=== PATIENT | female | born 1955 | race Caucasian/White ===

== ENCOUNTER 2018-07-12 13:44 | Observation (INO) | payer OTHER ==
[2018-07-12] MEDS ORDERED: NITROGLYCERIN SL TABS 0.4 MG TAB SUBLINGUAL STA (14:12)
[2018-07-12] MEDS ORDERED: ASPIRIN 81 MG PO STA (14:12)
[2018-07-12] MEDS: NITROGLYCERIN OINT 1 INCH/GM PACKET TOPICAL STA ×2 (14:23→15:12)
--- NOTE | 2018-07-12 14:30 | ED ---
General Adult HPI - General Chief complaint: Chest Pain Stated complaint: Chest Pressure Time Seen by Provider: 07/12/18 13:50 Source: patient, RN notes reviewed Mode of arrival: wheelchair Limitations: no limitations - History of Present Illness Initial comments: This a 62-year-old female presents emergency Department complaining of chest pain or the last 3 hours. Patient states it's a constant discomfort of the chest with episodes of chest heaviness are more severe. Patient states she's also very short of breath with this. Patient tried to wait it out because she was hoping it wasn't cardiac related but since it didn't go away she felt to come to the hospital. Patient denies any diaphoretic episodes associated with this. Patient states however when the pain gets worse she is definitely nauseated. Patient denies any vomiting per patient denies any abdominal pain patient denies any diarrhea. Patient denies any recent fever chills or cough. Patient denies any swelling to the legs or calf tenderness. Patient denies any recent ill. Patient states she has a history of hyper cholesterolemia as well as cardiogenic syncope. Patient denies any near syncope or dizziness today - Related Data Home Medications Medication Instructions Recorded Confirmed Aspirin EC [Ecotrin Low Dose] 81 mg PO DAILY 07/12/18 07/12/18 Atorvastatin [Lipitor] 10 mg PO HS 07/12/18 07/12/18 Cholecalciferol (Vitamin D3) 2,000 unit PO DAILY 07/12/18 07/12/18 [Vitamin D3] Ibuprofen [Motrin Ib] 800 mg PO Q8H PRN 07/12/18 07/12/18 Venlafaxine HCl [Effexor XR] 18.75 mg PO HS 07/12/18 07/12/18 Allergies Allergy/AdvReac Type Severity Reaction Status Date / Time No Known Allergies Allergy Verified 07/12/18 15:42 Review of Systems ROS Statement: Those systems with pertinent positive or pertinent negative responses have been documented in the HPI. ROS Other: All systems not noted in ROS Statement are negative. Past Medical History Past Medical History: Hyperlipidemia Additional Past Medical History / Comment(s): syncopal History of Any Multi-Drug Resistant Organisms: None Reported Past Surgical History: No Surgical Hx Reported Past Psychological History: PTSD Smoking Status: Former smoker Past Alcohol Use History: Occasional Past Drug Use History: None Reported General Exam - General Exam Comments Initial Comments: GENERAL: Patient is well-developed and well-nourished. Patient is nontoxic and well- hydrated and is in mild distress. ENT: Neck is soft and supple. No significant lymphadenopathy is noted. Oropharynx is clear. Moist mucous membranes. Neck has full range of motion without eliciting any pain. EYES: The sclera were anicteric and conjunctiva were pink and moist. Extraocular movements were intact and pupils were equal round and reactive to light. Eyelids were unremarkable. PULMONARY: Unlabored respirations. Good breath sounds bilaterally. No audible rales rhonchi or wheezing was noted. CARDIOVASCULAR: There is a regular rate and rhythm without any murmurs gallops or rubs. ABDOMEN: Soft and nontender with normal bowel sounds. No palpable organomegaly was noted. There is no palpable pulsatile mass. SKIN: Skin is clear with no lesions or rashes and otherwise unremarkable. NEUROLOGIC: Patient is alert and oriented x3. Cranial nerves II through XII are grossly intact. Motor and sensory are also intact. Normal speech, volume and content. Symmetrical smile. MUSCULOSKELETAL: Normal extremities with adequate strength and full range of motion. No lower extremity swelling or edema. No calf tenderness. LYMPHATICS: No significant lymphadenopathy is noted PSYCHIATRIC: Normal psychiatric evaluation. 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 EKG shows a normal sinus rhythm at 62 bpm [place] interval 292 QRS is 82 QT intervals 42 QTC is 408. Patient's EKG shows no ST segment elevation or depression or T wave abnormalities are noted. I started the patient on heparin because of the intermittent nature of the chest pain that was making her short of breath and nausea. I consider this unstable angina. I admitted the patient I spoke with because she agreed to accept the admission I wrote admitting orders I consulted cardiology continue the heparin nitro patient aspirin on the floor. - Lab Data Result diagrams: 07/12/18 14:20 07/12/18 14:20 Lab Results 07/12/18 07/12/18 07/12/18 Range/Units 14:20 14:20 14:20 WBC 6.0 (3.8-10.6) k/uL RBC 4.76 (3.80-5.40) m/uL Hgb 14.4 (11.4-16.0) gm/dL Hct 44.5 (34.0-46.0) % MCV 93.6 (80.0-100.0) fL MCH 30.2 (25.0-35.0) pg MCHC 32.3 (31.0-37.0) g/dL RDW 12.4 (11.5-15.5) % Plt Count 262 (150-450) k/uL Neutrophils % 53 % Lymphocytes % 37 % Monocytes % 6 % Eosinophils % 3 % Basophils % 0 % Neutrophils # 3.1 (1.3-7.7) k/uL Lymphocytes # 2.2 (1.0-4.8) k/uL Monocytes # 0.3 (0-1.0) k/uL Eosinophils # 0.2 (0-0.7) k/uL Basophils # 0.0 (0-0.2) k/uL PT (9.0-12.0) sec INR (<1.2) APTT (22.0-30.0) sec Sodium 142 (137-145) mmol/L Potassium 4.4 (3.5-5.1) mmol/L Chloride 108 H (98-107) mmol/L Carbon Dioxide 26 (22-30) mmol/L Anion Gap 8 mmol/L BUN 17 (7-17) mg/dL Creatinine 0.76 (0.52-1.04) mg/dL Est GFR (CKD-EPI)AfAm >90 (>60 ml/min/1.73 sqM) Est GFR (CKD-EPI)NonAf 85 (>60 ml/min/1.73 sqM) Glucose 88 (74-99) mg/dL Calcium 9.8 (8.4-10.2) mg/dL Magnesium 2.0 (1.6-2.3) mg/dL Total Bilirubin 0.5 (0.2-1.3) mg/dL AST 32 (14-36) U/L ALT 52 (9-52) U/L Alkaline Phosphatase 77 (38-126) U/L Total Creatine Kinase 72 (30-135) U/L CK-MB (CK-2) 1.1 (0.0-2.4) ng/mL CK-MB (CK-2) Rel Index 1.5 Troponin I <0.012 (0.000-0.034) ng/mL NT-Pro-B Natriuret Pep pg/mL Total Protein 6.7 (6.3-8.2) g/dL Albumin 3.8 (3.5-5.0) g/dL 07/12/18 07/12/18 Range/Units 14:20 14:20 WBC (3.8-10.6) k/uL RBC (3.80-5.40) m/uL Hgb (11.4-16.0) gm/dL Hct (34.0-46.0) % MCV (80.0-100.0) fL MCH (25.0-35.0) pg MCHC (31.0-37.0) g/dL RDW (11.5-15.5) % Plt Count (150-450) k/uL Neutrophils % % Lymphocytes % % Monocytes % % Eosinophils % % Basophils % % Neutrophils # (1.3-7.7) k/uL Lymphocytes # (1.0-4.8) k/uL Monocytes # (0-1.0) k/uL Eosinophils # (0-0.7) k/uL Basophils # (0-0.2) k/uL PT 10.0 (9.0-12.0) sec INR 1.0 (<1.2) APTT 21.9 L (22.0-30.0) sec Sodium (137-145) mmol/L Potassium (3.5-5.1) mmol/L Chloride (98-107) mmol/L Carbon Dioxide (22-30) mmol/L Anion Gap mmol/L BUN (7-17) mg/dL Creatinine (0.52-1.04) mg/dL Est GFR (CKD-EPI)AfAm (>60 ml/min/1.73 sqM) Est GFR (CKD-EPI)NonAf (>60 ml/min/1.73 sqM) Glucose (74-99) mg/dL Calcium (8.4-10.2) mg/dL Magnesium (1.6-2.3) mg/dL Total Bilirubin (0.2-1.3) mg/dL AST (14-36) U/L ALT (9-52) U/L Alkaline Phosphatase (38-126) U/L Total Creatine Kinase (30-135) U/L CK-MB (CK-2) (0.0-2.4) ng/mL CK-MB (CK-2) Rel Index Troponin I (0.000-0.034) ng/mL NT-Pro-B Natriuret Pep 35 pg/mL Total Protein (6.3-8.2) g/dL Albumin (3.5-5.0) g/dL Critical Care Time Critical Care Time: Yes Total Critical Care Time: 35 Disposition Clinical Impression: Unstable angina pectoris Disposition: ADMITTED IP TO THIS HOSP Referrals: Dorothy Hurtado MD [Primary Care Provider] - 1-2 days Time of Disposition: 16:16
[2018-07-12 14:47] LABS: Basophils % (A) 0 %; Eosinophils # (A) 0.2 k/uL (0-0.7); Eosinophils % (A) 3 %; HCT 44.5 % (34.0-46.0); HGB 14.4 gm/dL (11.4-16.0); Lymphocytes # (A) 2.2 k/uL (1.0-4.8); Lymphocytes % (A) 37 %; MCH 30.2 pg (25.0-35.0); MCHC 32.3 g/dL (31.0-37.0); MCV 93.6 fL (80.0-100.0); Mean Platelet Volume 6.7; Monocytes # (A) 0.3 k/uL (0-1.0); Monocytes % (A) 6 %; Neutrophils # (A) 3.1 k/uL (1.3-7.7); Neutrophils % (A) 53 %; Platelet Count 262 k/uL (150-450); RBC 4.76 m/uL (3.80-5.40); RDW 12.4 % (11.5-15.5)
[2018-07-12 14:56] LABS: ALT 52 U/L (9-52); AST 32 U/L (14-36); Albumin 3.8 g/dL (3.5-5.0); Alkaline Phosphatase 77 U/L (38-126); Anion Gap 8 mmol/L; Blood Urea Nitrogen 17 mg/dL (7-17); Calcium 9.8 mg/dL (8.4-10.2); Carbon Dioxide 26 mmol/L (22-30); Chloride 108 mmol/L (98-107); Glucose 88 mg/dL (74-99); Potassium 4.4 mmol/L (3.5-5.1); Sodium 142 mmol/L (137-145); Total Bilirubin 0.5 mg/dL (0.2-1.3); Total Protein 6.7 g/dL (6.3-8.2)
[2018-07-12 15:01] LABS: Creatine Kinase 72 U/L (30-135)
--- NOTE | 2018-07-12 15:13 | XR ---
EXAMINATION TYPE: XR chest 2V DATE OF EXAM: 07/12/2018 COMPARISON: NONE HISTORY: Chest heaviness. Short of breath TECHNIQUE: Frontal and lateral views of the chest are obtained. FINDINGS: There is poor expiration. Lungs are clear. There is no heart failure. Bony thorax is intac t. There are chest leads. There is no evidence of pleural effusion. IMPRESSION: Inspiration is poor. No heart failure or pulmonary consolidation.
[2018-07-12 15:14] LABS: Creatine Kinase MB 1.1 ng/mL (0.0-2.4); Troponin I <0.012 ng/mL (0.000-0.034)
[2018-07-12 15:31] LABS: Partial Thromboplastin Time 21.9 sec (22.0-30.0)
[2018-07-12] MEDS ORDERED: HEPARIN SODIUM,PORCINE 5,000 UNIT/ML 1 ML VIAL IV ONE (16:12)
[2018-07-12] MEDS ORDERED: HEPARIN SOD,PORK IN 0.45% NACL 25,000 UNIT in 0.45% NACL 1 500ML.BAG IV SCH (16:15)
[2018-07-12] MEDS ORDERED: NITROGLYCERIN SL TABS 0.4 MG TAB SUBLINGUAL PRN (17:44)
[2018-07-12] MEDS ORDERED: ACETAMINOPHEN TAB 325 MG TAB PO PRN (19:29)
[2018-07-12] MEDS ORDERED: VENLAFAXINE HCL 37.5 MG TAB PO SCH (21:00)
[2018-07-12] MEDS ORDERED: ATORVASTATIN 10 MG TAB PO SCH (21:00)
[2018-07-12 21:24] VITALS: BMI 29.5
[2018-07-12 22:17] LABS: Creatine Kinase 52 U/L (30-135)
[2018-07-12 22:31] LABS: Creatine Kinase MB 0.8 ng/mL (0.0-2.4); Troponin I <0.012 ng/mL (0.000-0.034)
[2018-07-13 03:05] LABS: Cholesterol 145 mg/dL (<200); HDL Cholesterol 56 mg/dL (40-60); LDL Cholesterol,Calculated 65 mg/dL (0-99); Triglycerides 122 mg/dL (<150)
[2018-07-13 03:28] LABS: Creatine Kinase 46 U/L (30-135)
[2018-07-13 03:41] LABS: Creatine Kinase MB 0.7 ng/mL (0.0-2.4); Troponin I <0.012 ng/mL (0.000-0.034)
[2018-07-13] MEDS ORDERED: ASPIRIN 325 MG TAB PO SCH (09:00)
[2018-07-13] MEDS ORDERED: ASPIRIN 81 MG PO SCH (09:00)
--- NOTE | 2018-07-13 10:34 | P.CRDCN ---
History of Present Illness History of present illness: This is a pleasant 62-year-old female past medical history significant for dyslipidemia. She denies history of hypertension, coronary artery disease or diabetes mellitus. She follows with Dr. Rod in the office. We have been asked to see her in consultation for chest pain. She states she woke up yesterday morning had a couple coffee was going about her normal routine she just didn't feel well in general she felt mildly nauseated and felt and nonspecific tightness around her upper chest and torso. She decided to go lay down and see if this would resolve her symptoms however the tightness in her chest persisted and then she started feeling short of breath. The pain radiated up into both of her shoulders at the base of her neck. No radiation to the arm or back. She states the day prior she also felt an odd pain sensation in the right neck with no specific aggravating factor or trauma. Continues to feel mildly nauseated. Chest pain has resolved. EKG reveals sinus mechanism with no acute ST or T-wave abnormalities. Chest x-ray is negative for an acute cardiopulmonary process. Laboratory data reviewed, WBC 6, hemoglobin 14.4, platelets 262, d-dimer 0.3, sodium 140, potassium 4.4, creatinine 0.76, magnesium 2.0, cardiac enzymes negative 3, LDL 65 and HDL 56. Current cardiac medications include aspirin 81 mg daily and atorvastatin 10 mg daily. At the time of my exam: CONSTITUTIONAL: Denies fever. Denies chills. EYES: Denies blurred vision. Denies vision changes. Denies eye pain. EARS, NOSE, MOUTH & THROAT: Denies headache. Denies sore throat. Denies ear pain. CARDIOVASCULAR: Denies chest pain. Denies shortness of breath. Denies orthopnea. Denies PND. Denies palpitations. RESPIRATORY: Denies cough. GASTROINTESTINAL: Denies abdominal pain. Denies diarrhea. Denies constipation. Denies nausea. Denies vomiting. MUSCULOSKELETAL: Denies myalgias. INTEGUMENTARY: Denies pruitis. Denies rash. NEUROLOGIC: Denies numbness. Denies tingling. Denies weakness. PSYCHIATRIC: Denies anxiety. Denies depression. ENDOCRINE: Denies fatigue. Denies weight change. Denies polydipsia. Denies polyurina. GENITOURINARY: Denies burning, hematuria or urgency with micturation. HEMATOLOGIC: Denies history of anemia. Denies bleeding. Blood pressure 115/70 heart rate 72 afebrile maintaining oxygen saturation on room air GENERAL: This is a 62-year-old female in no apparent distress at the time of my examination. HEENT: Head is atraumatic, normocephalic. Pupils are equal, round. Sclerae anicteric. Conjunctivae are clear. Mucous membranes of the mouth are moist. Neck is supple. There is no jugular venous distention. No carotid bruit is heard. LUNGS: Clear to auscultation no wheezes, rales or rhonchi. No chest wall tenderness is noted on palpation or with deep breathing. HEART: Regular rate and rhythm without murmurs, rubs or gallops. S1 and S2 heard. ABDOMEN: Soft, nontender. Bowel sounds are heard. No organomegaly noted. EXTREMITIES: No evidence of peripheral edema and no calf tenderness noted. VASCULAR: Radial and dorsalis pedis pulses palpated, no evidence of clubbing. NEUROLOGIC: Patient is awake, alert and oriented x3. ASSESSMENT Chest pain, atypical. An acute coronary event has been ruled out with no EKG evidence of ischemia and negative cardiac enzymes. Dyslipidemia PLAN An acute coronary event has been ruled out with no EKG evidence of ischemia and negative cardiac enzymes. Obtain 2-D echocardiogram and Doppler study to assess cardiac structure and function. Perform stress echocardiogram to assess for stress-induced cardiac ischemia. If stress test is normal she is stable from a cardiac perspective. Follow up with Dr. Rod in 3-4 weeks. Thank you kindly for this consultation. Nurse Practitioner note has been reviewed, I agree with a documented findings and plan of care. Patient was seen and examined. Past Medical History Past Medical History: Hyperlipidemia Additional Past Medical History / Comment(s): syncopal History of Any Multi-Drug Resistant Organisms: None Reported Past Surgical History: No Surgical Hx Reported Smoking Status: Never smoker - Past Family History Father Additional Family Medical History / Comment(s): Pacer Mother Family Medical History: No Reported History Medications and Allergies Home Medications Medication Instructions Recorded Confirmed Type Aspirin EC [Ecotrin Low Dose] 81 mg PO DAILY 07/12/18 07/12/18 History Atorvastatin [Lipitor] 10 mg PO HS 07/12/18 07/12/18 History Cholecalciferol (Vitamin D3) 2,000 unit PO DAILY 07/12/18 07/12/18 History [Vitamin D3] Ibuprofen [Motrin Ib] 800 mg PO Q8H PRN 07/12/18 07/12/18 History Venlafaxine HCl [Effexor XR] 18.75 mg PO HS 07/12/18 07/12/18 History Allergies Allergy/AdvReac Type Severity Reaction Status Date / Time No Known Allergies Allergy Verified 07/12/18 21:14 Physical Exam Vitals: Vital Signs Temp Pulse Pulse Pulse Resp BP BP 07/13/18 07:30 98.4 F 72 17 115/70 07/13/18 03:47 98.3 F 77 18 114/65 07/13/18 03:12 18 07/13/18 00:00 97.5 F L 68 18 114/64 07/12/18 21:53 18 07/12/18 20:00 98.1 F 75 62 18 108/64 109/51 07/12/18 19:00 60 18 107/68 07/12/18 18:00 54 L 14 111/71 07/12/18 17:00 57 L 18 114/82 07/12/18 16:00 56 L 19 126/86 07/12/18 15:15 55 L 18 115/73 07/12/18 15:00 55 L 11 L 115/80 07/12/18 14:38 77 18 115/80 07/12/18 14:25 62 07/12/18 13:49 97.8 F 66 20 162/75 Pulse Ox 07/13/18 07:30 98 07/13/18 03:47 97 07/13/18 03:12 07/13/18 00:00 97 07/12/18 21:53 07/12/18 20:00 95 07/12/18 19:00 95 07/12/18 18:00 84 L 07/12/18 17:00 98 07/12/18 16:00 96 07/12/18 15:15 97 07/12/18 15:00 95 07/12/18 14:38 95 07/12/18 14:25 07/12/18 13:49 97 Intake and Output 07/12/18 07/13/18 07/13/18 22:59 06:59 14:59 Intake Total 137.988 Balance 137.988 Intake: Intake, IV Titration 137.988 Amount Heparin Sod,Pork in 0.45% 137.988 NaCl 25,000 unit In 0.45 % NaCl 1 500ml.bag @ 11 UNITS/KG/HR 19.95 mls/hr IV .Q24H [facility] Rx#: [id number] Other: # Voids 1 Weight 90.7 kg Results 07/12/18 14:20 07/12/18 14:20 Cardiac Enzymes 07/12/18 07/12/18 07/12/18 Range/Units 14:20 14:20 21:21 AST 32 (14-36) U/L CK-MB (CK-2) 1.1 0.8 (0.0-2.4) ng/mL Troponin I <0.012 <0.012 (0.000-0.034) ng/mL 07/13/18 Range/Units 02:26 AST (14-36) U/L CK-MB (CK-2) 0.7 (0.0-2.4) ng/mL Troponin I <0.012 (0.000-0.034) ng/mL Coagulation 07/12/18 07/12/18 Range/Units 14:20 23:20 PT 10.0 (9.0-12.0) sec APTT 21.9 L 42.6 H (22.0-30.0) sec Lipids 07/13/18 Range/Units 02:26 Triglycerides 122 (<150) mg/dL Cholesterol 145 (<200) mg/dL HDL Cholesterol 56 (40-60) mg/dL CBC 07/12/18 Range/Units 14:20 WBC 6.0 (3.8-10.6) k/uL RBC 4.76 (3.80-5.40) m/uL Hgb 14.4 (11.4-16.0) gm/dL Hct 44.5 (34.0-46.0) % Plt Count 262 (150-450) k/uL Comprehensive Metabolic Panel 07/12/18 Range/Units 14:20 Sodium 142 (137-145) mmol/L Potassium 4.4 (3.5-5.1) mmol/L Chloride 108 H (98-107) mmol/L Carbon Dioxide 26 (22-30) mmol/L BUN 17 (7-17) mg/dL Creatinine 0.76 (0.52-1.04) mg/dL Glucose 88 (74-99) mg/dL Calcium 9.8 (8.4-10.2) mg/dL AST 32 (14-36) U/L ALT 52 (9-52) U/L Alkaline Phosphatase 77 (38-126) U/L Total Protein 6.7 (6.3-8.2) g/dL Albumin 3.8 (3.5-5.0) g/dL Current Medications Generic Name Dose Route Start Last Admin Trade Name Freq PRN Reason Stop Dose Admin Acetaminophen 650 mg 07/12/18 19:29 Tylenol Tab PO Q4HR PRN Fever and/ or Pain Aspirin 325 mg 07/13/18 09:00 Aspirin PO DAILY [facility] Atorvastatin Calcium 10 mg 07/12/18 21:00 07/12/18 21:31 Lipitor PO 10 mg HS [facility] Administration Heparin Sodium/Sodium Chloride 500 mls @ 19.95 mls/hr 07/12/18 16:15 00:28 25,000 unit/ Sodium Chloride IV 13 units/kg/hr .Q24H [facility] 23.58 mls/hr Titration Protocol 11 UNITS/KG/HR Nitroglycerin 0.4 mg 07/12/18 17:44 Nitrostat SUBLINGUAL Q5M PRN Chest Pain Venlafaxine HCl 18.75 mg 07/12/18 21:00 07/12/18 21:30 Effexor PO 18.75 mg HS [facility] Administration Intake and Output 07/12/18 07/13/18 07/13/18 22:59 06:59 14:59 Intake Total 137.988 Balance 137.988 Intake: Intake, IV Titration 137.988 Amount Heparin Sod,Pork in 0.45% 137.988 NaCl 25,000 unit In 0.45 % NaCl 1 500ml.bag @ 11 UNITS/KG/HR 19.95 mls/hr IV .Q24H [facility] Rx#: [id number] Other: # Voids 1 Weight 90.7 kg 07/12/18 14:20 07/12/18 14:20
--- NOTE | 2018-07-13 11:40 | ECHOF ---
Referral Reason:cp, sob MEASUREMENTS -------- HEIGHT: 175.3 cm WEIGHT: 90.3 kg BP: 115/70 RVIDd: 2.8 cm (< 3.3) IVSd: 1.2 cm (0.6 - 1.1) LVIDd: 3.5 cm (3.9 - 5.3) LVPWd: 1.1 cm (0.6 - 1.1) IVSs: 1.6 cm LVIDs: 3.3 cm LVPWs: 0.9 cm LA Diam: 2.9 cm (2.7 - 3.8) LAESV Index (A-L): 17.70 ml/m Ao Diam: 3.2 cm (2.0 - 3.7) AV Cusp: 1.6 cm (1.5 - 2.6) LA Diam: 3.1 cm (2.7 - 3.8) MV EXCURSION: 17.007 mm (> 18.000) MV EF SLOPE: 78 mm/s (70 - 150) EPSS: 0.8 cm MV E Beni: 0.60 m/s MV DecT: 294 ms MV A Beni: 0.73 m/s MV E/A Ratio: 0.83 RAP: 5.00 mmHg RVSP: 14.41 mmHg FINDINGS -------- Sinus rhythm. This was a technically adequate study. The left ventricular size is normal. There is mild concentric left ventricular hypertrophy. Overa ll left ventricular systolic function is normal with, an EF between 55 - 60 %. The right ventricle is normal in size. Normal LA size by volume 22+/-6 ml/m2. The right atrial size is normal. The aortic valve is trileaflet, and appears structurally normal. No aortic stenosis or regurgitation. The mitral valve is normal. Mild mitral regurgitation is present. Mild tricuspid regurgitation present. There is no evidence of pulmonary hypertension. The right v entricular systolic pressure, as measured by Doppler, is 14.41mmHg. Trace/mild (physiologic) pulmonic regurgitation. The aortic root size is normal. There is no pericardial effusion. CONCLUSIONS -------- 1. Sinus rhythm. 2. This was a technically adequate study. 3. The left ventricular size is normal. 4. There is mild concentric left ventricular hypertrophy. 5. Overall left ventricular systolic function is normal with, an EF between 55 - 60 %. 6. Normal LA size by volume 22+/-6 ml/m2. 7. The right atrial size is normal. 8. The aortic valve is trileaflet, and appears structurally normal. No aortic stenosis or regurgitati on. 9. Mild mitral regurgitation is present. 10. Mild tricuspid regurgitation present. 11. There is no evidence of pulmonary hypertension. 12. The right ventricular systolic pressure, as measured by Doppler, is 14.41mmHg. 13. Trace/mild (physiologic) pulmonic regurgitation. 14. The aortic root size is normal. 15. There is no pericardial effusion. TITLE AGENT: Janeth Ariza RDCS
[2018-07-13 11:47] VITALS: RESP 18
--- NOTE | 2018-07-13 14:19 | ECHOS ---
STRESS ECHOCARDIOGRAM INDICATIONS: Chest pain/shortness of breath BASELINE HEART RATE: 62 BASELINE BLOOD PRESSURE: 108/54 MAXIMUM HEART RATE: 143 MAXIMUM. BLOOD PRESSURE: 195/201 85% MPHR: 135 100% MPHR: 159 METS: 8.3 MAXIMUM STAGE REACHED: 3 TOTAL EXERCISE TIME: 7:00 CLINICAL INFORMATION: Baseline rhythm is sinus mechanism, rate is 62, normal axis, poor R-wave progression. Baseline blood pressure 108/54 mmHg. Patient exercised on Gokul protocol for 7 minute reaching peak rate of 143 beats per minute which is equal to 90% maximum predicted heart rate. Peak blood pressure 195/102 mmHg. Test was terminated due to fatigue. There was no chest pain. Electrocardiograph monitoring revealed no evidence of diagnostic ischemic ST deviation. FINDINGS: Baseline echocardiogram revealed normal wall motion. At peak exercise, there was normal wall motion augmentation with no hypokinesis or dyskinesis. CONCLUSION: 1. Average exercise tolerance was normal electrographic response to exercise. 2. Normal stress echocardiogram with no evidence of stress induced ischemia. MMODL / IJN: [id number] /
[2018-07-13 15:24] VITALS: BP 108/67; PULSE 70; TEMP 98.7
--- NOTE | 2018-07-14 00:52 | DS ---
DISCHARGE SUMMARY HISTORY AND PHYSICAL/DISCHARGE SUMMARY: DATE OF ADMISSION: 07/12/2018 DATE OF SERVICE: 07/13/2018 PRESENTING COMPLAINT: Chest pressure. HISTORY OF PRESENTING COMPLAINT: This is a very pleasant 62-year-old patient who follows with Dr. Dorothy Hurtado. Chronic stable medical conditions include hyperlipidemia, anxiety, sciatica, neurocardiogenic syncope. The patient has been going through some stress because her who is in the 60s had undergone a stroke, not able to get around the house. The patient is employed. The patient yesterday morning got up and felt a bit nauseated, felt uncomfortable feeling in the chest, somewhat like a heaviness, mildly short of breath, was not able to shake it off after walking about. Started getting a bit anxious. Symptoms lasted for a good half an hour. There was no radiation to neck or arm. No fever. No chills. Decided to come in to rule out a cardiac cause. The patient did smoke in the past. REVIEW OF SYSTEMS: CONSTITUTIONAL: None. HEENT none. RESPIRATORY: As above. CARDIOVASCULAR as above. GASTROINTESTINAL none. GENITOURINARY: None. MUSCULOSKELETAL: None. DERMATOLOGIC, HEMATOLOGIC and LYMPHATIC: None. PSYCHIATRY: Occasionally anxious. NEUROLOGICAL: None. PAST MEDICAL HISTORY: Hyperlipidemia, anxiety, sciatica. Neurocardiogenic syncope. PAST SURGICAL HISTORY: None. SOCIAL HISTORY: The patient smoked a pack a day for 20 years, stopped 16 years ago. Alcohol occasionally. . Currently working [employer]. FAMILY HISTORY: Reviewed, noncontributory to presentation. HOME MEDICATIONS: 1. Effexor XR 18.75 mg p.o. q.h.s. 2. Motrin p.r.n. 3. Vitamin D3 2000 units p.o. daily. 4. Lipitor 10 mg p.o. q.h.s. 5. Aspirin 81 mg a day. ALLERGIES: None. PHYSICAL EXAMINATION: VITAL SIGNS: Temperature 98.7, pulse 98, respiratory rate 18, blood pressure 108/67, pulse ox 96% on room air. GENERAL APPEARANCE: Average build, lying in bed, not in distress. EYES: Pupils equal. Conjunctiave normal. HEENT: External appearance of nose and ears normal. Oral cavity normal. NECK: JVD not raised. Mass not palpable. RESPIRATORY: Effort normal. LUNGS: Fair entry. CARDIOVASCULAR: 1st and 2nd sounds normal. No edema. ABDOMEN: Soft, nontender. Liver and spleen not palpable. LYMPHATIC: No lymph nodes palpable in the neck and axilla. PSYCHIATRY: Alert and oriented x3. Mood and affect. Occasionally anxious. NEUROLOGICAL: Pupils equal. Cranial nerves grossly intact. Power and sensation grossly intact. INVESTIGATIONS: White count 16, hemoglobin 14.4, potassium 4.4. BUN and creatinine is normal. Troponin times three is negative. LDL 65. EKG tracing personally reviewed by me shows normal sinus rhythm. Chest x-ray film personally reviewed by me shows poor inspiratory film. Report also reviewed. ASSESSMENT: 1. Episode of some nausea, heaviness, mildly short of breath, uncomfortable, D-dimer normal. Could have been anxiety. Cardiac cause to be ruled out. 2. Hyperlipidemia. 3. Anxiety not otherwise specified. 4. Sciatica. 5. Neurocardiogenic syncope. PLAN: Cardiac enzymes were negative. D-dimer was negative. The patient did undergo 2D echo and a stress echocardiogram, but was negative. The patient is being discharged discharge. FINAL DIAGNOSES: 1. Possible psychosomatic from underlying anxiety. 2. Hyperlipidemia. 3. Anxiety not otherwise specified. 4. Chronic sciatica. PLAN: Patient is seen by Cardiology. Negative stress test. Patient can be discharged home. Care was discussed with the patient. No change in medications. FOLLOWUP: 1. Follow up with Dr. Rod in 3 weeks. 2. Follow up with Dorothy Hurtado in [address] Dorothy Hurtado. I did report a history and physical and discharge summary on this patient. 07/13/2018 MMODL / IJN: [id number] /
== END 2018-07-13 16:54 | disposition home or self-care (01) ==
LOC: EC 13:44 → 1SOBS 17:55
PROVIDERS: ADMIT Hospitalist; ATTEND Hospitalist
DX: R07.89 Other chest pain (principal); E78.5 Hyperlipidemia, unspecified; M54.30 Sciatica, unspecified side; R55 Syncope and collapse; F41.9 Anxiety disorder, unspecified; R11.0 Nausea; R06.02 Shortness of breath; R79.1 Abnormal coagulation profile; F43.10 Post-traumatic stress disorder, unspecified; Z79.82 Long term (current) use of aspirin; Z79.899 Other long term (current) drug therapy; Z87.891 Personal history of nicotine dependence
CPT/HCPCS: 96366 ×3; 96376; 96365; 99291; 36415; 93005 ×2; 93306; 93351; 85379; 83880; 80061; 80053; 82550 ×2; 82553 ×2; 83735; 84484 ×2; 85025; 85610; 85730; 71046; G0378 ×2; J1644 ×2

== ENCOUNTER 2023-06-13 11:22 | Day surgery (SDC) | payer MEDICARE, OTHER ==
[2023-06-11 14:27] VITALS: BMI 28.8
[~2023-06-13 11:22] MED LIST: LACTATED RINGERS 1,000 ML IV SCH
[2023-06-13] MEDS ORDERED: LIDOCAINE 1% (10MG/ML) FOR IV START INTRADERMA ONE (12:25)
[2023-06-13 12:38] VITALS: RESP 16; TEMP 97.4
[2023-06-13] MEDS ORDERED: LIDOCAINE 1% INJ 10MG/ML (20 ML MDV) ONE (13:23)
[2023-06-13] MEDS ORDERED: PROPOFOL 10 MG/ML 20 ML VIAL IV ONE (13:23)
[2023-06-13] MEDS ORDERED: SODIUM CHLORIDE 0.9% 500 ML 500 ML IV ONE (13:29)
--- NOTE | 2023-06-13 13:35 | P.PCN ---
Date of Procedure: 06/13/23 Procedure(s) Performed: BRIEF HISTORY: Patient is a 67-year-old pleasant White female scheduled for an elective colonoscopy as a part of evaluation of prior history of colon polyps. Her last colonoscopy was 7 years ago. PROCEDURE PERFORMED: Colonoscopy with biopsy. PREOPERATIVE DIAGNOSIS: History of colon polyps. IV sedation per Anesthesia. PROCEDURE: After informed consent was obtained, the patient, was brought into the endoscopy unit. IV sedation was administered by Anesthesia under continuous monitoring. Digital rectal examination was normal. Initially the Olympus CF-160 flexible video colonoscope was then inserted in the rectum, gradually advanced into the cecum without any difficulty. Careful examination was performed as the scope was gradually being withdrawn. Ileocecal valve and the appendiceal orifice were visualized and appeared normal. Prep was excellent. Mucosa of the cecum, appeared normal. In the ascending colon there was a 3-4 mm sessile polyp removed by cold biopsy. Rest of the ascending colon, transverse colon, descending colon, sigmoid colon, and rectum appeared normal. Scattered sigmoid diverticulosis. Retroflexion was performed in the rectum and no lesions were seen. The patient tolerated the procedure well. IMPRESSION: 3-4 mm sessile ascending colon polyp status post cold biopsy Scattered sigmoid diverticulosis RECOMMENDATIONS: Findings of this examination were discussed with the patient as well as a family. She was advised to follow with the biopsy results and have a repeat coloscopy in 5 years.
[2023-06-13 14:08] VITALS: BP 127/70; PULSE 64
== END 2023-06-13 13:57 | disposition home or self-care (01) ==
LOC: ORWHC2ENDO 11:22
PROVIDERS: ATTEND Internal Medicine Gastroenterology
DX: Z12.11 Encounter for screening for malignant neoplasm of colon (principal); K57.30 Diverticulosis of large intestine without perforation or abscess without bleeding; D12.2 Benign neoplasm of ascending colon; E78.5 Hyperlipidemia, unspecified; F43.10 Post-traumatic stress disorder, unspecified; Z79.83 Long term (current) use of bisphosphonates; Z79.02 Long term (current) use of antithrombotics/antiplatelets; Z79.899 Other long term (current) drug therapy; Z86.010 Personal history of colon polyps
CPT/HCPCS: 45380; J2001; J2704; 88305